=== PATIENT | male | born 1980 | race Caucasian/White ===

== ENCOUNTER 2017-05-23 17:32 | Emergency (ER) | payer OTHER ==
[~2017-05-23] VITALS: Ht 177.8 cm; Wt 75.0 kg
[2017-05-23 17:33] VITALS: BP 130/78; PULSE 60; RESP 15; TEMP 98.5; O2SAT 98
--- NOTE | 2017-05-23 17:50 | PD ---
HPI Chief Complaint: Eye Problems/Injury Time Seen by Provider: 17:47 Travel History International Travel<30 days: No Contact w/Intl Traveler<30days: No Traveled to known affect area: No History of Present Illness HPI 37-year-old male presents to the emergency department for evaluation of foreign body in left eye. Patient states that last night he had gradual sensation of foreign body in his eye. States that he does not recall anything specifically flying into his eye or hitting him in the eye. He was not cutting metal or any other such activities last night. 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 States that since last night he's had continued irritation and increased tearing of the left eye. Denies any vision loss, blurred vision, headache, lightheadedness, dizziness, nausea, vomiting, crusting, discharge. States that he's had a corneal abrasion on the left eye before and this feels similar. He does not wear contact lenses or corrective lenses. Symptoms are moderate. No modifying factors. No other complaints. PFSH Past Medical History Anxiety: Yes Social History Alcohol Use: Yes (on occasion) Tobacco Use: Yes (2-3 cigs daily) Substance Use: No Allergies-Medications (Allergen,Severity, Reaction): Coded Allergies: Bee Sting (Verified Allergy, Unknown, 05/23/17) Review of Systems Except as stated in HPI: all other systems reviewed are Neg Physical Exam Narrative GENERAL: Well-nourished and well-developed pleasant patient in no acute distress who is nontoxic appearing. SKIN: Warm and dry. HEAD: Normocephalic and atraumatic. EYES: Left eye with scleral injection and increased tearing. There is a pinpoint foreign body noted to the cornea at the 4 o'clock position. Negative Angelita's sign. No rust ring noted. Fluorescein stain reveals no uptake. No ulcerations or abrasions noted. Visual acuity is equal bilaterally. No injection, drainage, or hyphema noted. PERRLA. EOMI. ENT: No nasal drainage noted. Oropharynx is clear. NECK: Supple and the trachea is midline. CARDIOVASCULAR: Regular rate and rhythm. RESPIRATORY: Breath sounds are equal bilaterally with no accessory muscle use, wheezing, rhonchi, or crackles. NEUROLOGICAL: Awake, alert, and oriented. Normal speech and gait. Cranial nerves are grossly intact. Data Data Last Documented VS Vital Signs Date Time Temp Pulse Resp B/P Pulse Ox O2 Delivery O2 Flow Rate FiO2 05/23/17 17:33 98.5 60 15 130/78 98 Orders Proparacaine 0.5% Opth Soln (Alcaine 0.5 (05/23/17 18:00) MDM Medical Decision Making Medical Screen Exam Complete: Yes Emergency Medical Condition: Yes Differential Diagnosis Foreign body versus corneal abrasion versus corneal ulcer Narrative Course 37-year-old male presents to the emergency department for evaluation of foreign body to left eye since last night. Patient is afebrile, vital signs are stable. There is no corneal abrasion noted on examination. Visual acuity is within normal limits. Patient has only mild irritation but no pain. He has a pinpoint foreign body noted. Proparacaine drops are instilled into the left eye and I attempted removal of the foreign body using a cotton swab unsuccessfully. I then used a 27 gauge needle to lightly touch the foreign body which then dislodged it from the cornea and it was removed fully using a cotton swab. Patient tolerated procedure well. He'll be placed on erythromycin ointment and instructed to follow-up with an regulatory law specialist for recheck. Patient verbalizes understanding and agreement with treatment plan. I discussed the case with my attending physician Dr. Riley who is aware of the patients history, physical examination findings, and treatment plan. Diagnosis Primary Impression: Corneal foreign body Qualified Code: T15.02XA - Corneal foreign body, left, initial encounter Referrals: Alejandra Hager MD 1 week Additional Instructions: Use ointment as prescribed. Follow-up with an regulatory law specialist in the next week. Return to the ED for any acute worsening of symptoms. Med/Other Pt SpecificInfo: Prescription(s) given Scripts Erythromycin Opth Oint 5 Mg/Gm Oint1 Applic LEFT EYE QID 7 Days Ref 0 Prov:Jonathan Riley MD 05/23/17 Disposition: 01 DISCHARGE HOME Condition: Stable Josette Mccallum May 23, 2017 17:50
[2017-05-23] MEDS ORDERED: PROPARACAINE HCL 0.5% OPHT SOLN 15 ML BTL LEFT EYE ONE (18:00)
[2017-05-23] MEDS ORDERED: ERYTOIN10 LEFT EYE (18:06)
== END 2017-05-23 18:47 | disposition home or self-care (01) ==
LOC: NEPD 17:32
DX: T15.02XA Foreign body in cornea, left eye, initial encounter (principal); X58.XXXA Exposure to other specified factors, initial encounter; F17.210 Nicotine dependence, cigarettes, uncomplicated
CPT/HCPCS: 65220

== ENCOUNTER 2018-02-26 04:20 | Emergency (ER) | payer OTHER ==
[~2018-02-26 04:20] MED LIST: ERYTOIN10 LEFT EYE
[2018-02-26 04:21] VITALS: BP 149/92; PULSE 67; RESP 18; TEMP 98.1; O2SAT 99
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
[2018-02-26] MEDS ORDERED: ACETAMINOPHEN/HYDROcodone 325 MG/5 MG TAB PO ONE (05:00)
[2018-02-26] MEDS ORDERED: NAPROXEN 500 MG TAB PO ONE (05:00)
[2018-02-26] MEDS ORDERED: CYCLOBENZAPRINE HCL 10 MG TAB PO ONE (05:00)
[2018-02-26] MEDS ORDERED: NORC5TAB PO (05:02)
[2018-02-26] MEDS ORDERED: DICL75TA PO (05:02)
[2018-02-26] MEDS ORDERED: ROBA750T PO (05:02)
== END 2018-02-26 05:31 | disposition home or self-care (01) ==
LOC: NEPD 04:20
DX: M54.12 Radiculopathy, cervical region (principal)
CPT/HCPCS: 99283